=== PATIENT | female | born 1965 | race African-American/Black ===

== ENCOUNTER → 2016-12-23 | Outpatient (CLI) | payer OTHER ==
[2014-12-01 11:34] VITALS: BP 134/92
[~2016-12-23] MED LIST: NS 100 ML IV 100 ML IV ONE
[2016-12-23 10:26] LABS: CREATININE 1.15 mg/dL (0.55-1.02)
--- NOTE | 2016-12-24 14:44 | CT ---
CT NECK WITH IV CONTRAST CLINICAL INDICATION: Throat pain TECHNIQUE: Multiple-row detector helical CT examination of the neck with IV contrast per standard de partmental protocol.Dose reduction techniques including Automated Exposure Control (AEC) and adjustme nt of mA and kV were utlized. COMPARISON: None. FINDINGS: The aerodigestive structures are within normal limits. Specifically, the nasal cavity, nasopharynx, oral cavity, oropharynx, hypopharynx, larynx, and visualized trachea and esophagus demonstrate no mas ses or abnormal enhancement. No pathologically enlarged, necrotic, or otherwise abnormal lymph nodes. The parotid and submandibular glands appear within normal limits. The thyroid gland is normal in size without focal abnormality. Evaluation of the visualized portions of brain parenchyma and orbits demonstrates no abnormality. The visualized paranasal sinuses are predominantly clear. The tympanomastoid cavities are unopacified. T here is normal intravascular enhancement. Limited evaluation of the lung apices demonstrates no abnormality. The visualized osseous structures are within normal limits. Following administration of intravenous contrast material, there is no abnormal enhancement. IMPRESSION: 1. Normal CT of the neck with contrast. Reported By:
--- NOTE | 2016-12-29 16:09 | MG ---
HISTORY: SCREENING Comparison: July 23, 2015 and September 12, 2014 FINDINGS: Bilateral CC and MLO projections of the right and left breast were obtained. Scattered fibroglandula r tissue is seen to be present with ongoing interval involution of postsurgical changes on the right with a biopsy clip and scar marker noted. No new or developing suspicious architectural distortion, mass or clustered microcalcifications can be observed to suggest malignancy. No skin thickening or n ipple retraction is appreciated. No pathological lymphadenopathy can be identified. Benign-appearin g calcifications are noted within the right and left breast. IMPRESSION: NO RADIOGRAPHIC EVIDENCE OF MALIGNANCY. ACR CATEGORY 2 - benign findings. FOLLOW-UP EXAM 1 YEAR. Diagnostic CAD was utilized and reviewed. * 0 (ZERO) - ASSESSMENT INCOMPLETE; ADDITIONAL IMAGING IS NEEDED. * 1/1 (ONE) - NEGATIVE. * 2/II (TWO) - BENIGN FINDINGS. * 3/III (THREE) - PROBABLY BENIGN FINDING; SHORT INTERVAL FOLLOW-UP SUGGESTED. * 4/IV (FOUR) - SUSPICIOUS ABNORMALITY; BIOPSY SHOULD BE CONSIDERED. * 5/V - HIGHLY SUSPICIOUS OF MALIGNANCY; BIOPSY SHOULD BE PERFORMED. A NEGATIVE X-RAY REPORT SHOULD NOT DELAY BIOPSY IF A DOMINANT OR CLINICALLY SUSPICIOUS MASS IS PRESENT; 4 TO 8 PERCENT OF CANCERS ARE NOT IDENTIFIED BY X-RAY. A NEGA TIVE REPORT MAY REINFORCE THE CLINICAL IMPRESSION. ADENOSIS AND DENSE BREASTS MAY OBSCURE AN UNDERLY ING NEOPLASM. Reported By:
== END ==
LOC: RAD 10:00
PROVIDERS: ATTEND Nurse Practitioner Family
DX: D38.0 Neoplasm of uncertain behavior of larynx (principal); Z12.31 Encounter for screening mammogram for malignant neoplasm of breast
CPT/HCPCS: 36415; 70491; 77067; 82565; 84520; A4222

== ENCOUNTER 2017-01-08 07:31 | Day surgery (SDC) | payer OTHER ==
[2017-01-08] MEDS ORDERED: D5 LR 1000 ML 1,000 ML IV ONE (07:39)
[2017-01-08] MEDS ORDERED: DIPRIVAN VIAL 20 ML ONE (09:43)
[2017-01-08 10:29] VITALS: BP 133/74
== END 2017-01-08 10:15 | disposition home or self-care (01) ==
LOC: SURG1 07:31
PROVIDERS: ATTEND Internal Medicine Gastroenterology
DX: K25.9 Gastric ulcer, unspecified as acute or chronic, without hemorrhage or perforation (principal); R10.13 Epigastric pain; K21.9 Gastro-esophageal reflux disease without esophagitis; R11.0 Nausea; K29.60 Other gastritis without bleeding; K20.8 Other esophagitis
CPT/HCPCS: A4217; J3490; J7120